=== PATIENT | male | born 1945 | race Caucasian/White ===

== ENCOUNTER 2018-08-17 20:12 | Emergency (ER) | payer SELFPAY ==
[~2018-08-17] VITALS: Ht 177.8 cm; Wt 78.9 kg
[2018-08-17 20:41] LABS: BASOPHILS ABSOLUTE AUTO 0.04 K/mm3 (0.00-0.23); BASOPHILS PERCENT AUTO 1 % (0-2); EOSINOPHILS ABSOLUTE AUTO 0.14 K/mm3 (0.00-0.68); EOSINOPHILS PERCENT AUTO 2 % (0-6); Hematocrit 36.6 % (37.0-53.0); Hemoglobin 12.6 g/dL (13.5-17.5); IMMATURE GRAN ABSOLUTE AUTO 0.02 K/mm3 (0.00-0.10); IMMATURE GRAN PERCENT AUTO 0 % (0-1); LYMPHOCYTES ABSOLUTE AUTO 1.99 K/mm3 (0.84-5.20); LYMPHOCYTES PERCENT AUTO 33 % (21-46); MONOCYTES ABSOLUTE AUTO 0.59 K/mm3 (0.16-1.47); MONOCYTES PERCENT AUTO 10 % (4-13); Mean Corpuscular HGB 34.2 pg (26.0-34.0); Mean Corpuscular HGB Conc 34.4 g/dL (31.5-36.5); Mean Corpuscular Volume 100 fL (80-100); Mean Platelet Volume 10.1 fL (9.1-12.4); NEUTROPHILS ABSOLUTE AUTO 3.19 K/mm3 (1.96-9.15); NEUTROPHILS PERCENT AUTO 54 % (41-73); Platelet Count 246 K/mm3 (150-400); RDW Coefficient Variation 12.3 % (11.7-14.2); RDW Standard Deviation 45.1 fL (35.1-46.3); Red Blood Cell Count 3.68 M/mm3 (4.30-5.90); White Blood Cell Count 5.97 K/mm3 (4.00-11.30)
[2018-08-17 20:55] LABS: Alanine Aminotransfer (ALT/SGP 32 U/L (12-78); Albumin, Blood 3.8 g/dL (3.4-5.0); Albumin/Globulin Ratio 1.1 (0.8-1.8); Alk Phos 120 U/L (50-136); Anion Gap 4 mmol/L (6-16); Aspartate Aminotrans (AST/SGOT 24 U/L (12-37); Bilirubin, Total 0.8 mg/dL (0.1-1.0); Blood Urea Nitrogen 13 mg/dL (8-24); Bun/Creatinine Ratio 14.2 (12.0-20.0); CO2, Blood 30 mmol/L (21-32); Calcium, Blood 8.5 mg/dL (8.5-10.1); Chloride, Blood 109 mmol/L (98-108); Creatinine, Blood 0.92 mg/dL (0.60-1.20); Globulin, Blood 3.4 g/dL (2.2-4.0); Glomerular Filtration Rate >60 (60-); Glucose, Blood 107 mg/dL (70-99); International Normalized Ratio 0.96; Potassium, Blood 3.7 mmol/L (3.5-5.5); Prothrombin Time Results 10.2 Sec (9.7-11.5); Sodium, Blood 143 mmol/L (136-145); Total Protein, Blood 7.2 g/dL (6.4-8.2)
[2018-08-17] MEDS ORDERED: ESCI20 PO (22:37)
[2018-08-17] MEDS ORDERED: ASPI325 PO (22:37)
[2018-08-17] MEDS ORDERED: FINA5 PO (22:38)
[2018-08-17] MEDS ORDERED: IBUP800 (22:38)
[2018-08-17] MEDS ORDERED: BUSP5 PO (22:38)
[2018-08-17] MEDS ORDERED: LISI5 PO (22:38)
== END 2018-08-17 23:01 | disposition home or self-care (01) ==
LOC: ER 20:12
PROVIDERS: Emergency Medicine
DX: G45.9 Transient cerebral ischemic attack, unspecified (principal); M54.5 Low back pain; Z88.1 Allergy status to other antibiotic agents; Z79.899 Other long term (current) drug therapy; Z79.82 Long term (current) use of aspirin
CPT/HCPCS: 70450; 72100; 80053; 85025; 85610; 93005; 93010; 99284-25

== ENCOUNTER 2018-08-27 19:11 | Inpatient (IN) | payer MEDICARE ==
[~2018-08-27] VITALS: Ht 177.8 cm; Wt 75.3 kg
[~2018-08-27 19:11] MED LIST: ASPI325 PO; BUSP5 PO; ESCI20 PO; FINA5 PO; IBUP800 PO; LISI5 PO
[2018-08-27] MEDS ORDERED: CLOP75 PO (19:26)
[2018-08-27 19:37] LABS: BASOPHILS ABSOLUTE AUTO 0.03 K/mm3 (0.00-0.23); BASOPHILS PERCENT AUTO 1 % (0-2); EOSINOPHILS ABSOLUTE AUTO 0.09 K/mm3 (0.00-0.68); EOSINOPHILS PERCENT AUTO 2 % (0-6); Hemoglobin 13.1 g/dL (13.5-17.5); IMMATURE GRAN ABSOLUTE AUTO 0.01 K/mm3 (0.00-0.10); IMMATURE GRAN PERCENT AUTO 0 % (0-1); LYMPHOCYTES ABSOLUTE AUTO 1.59 K/mm3 (0.84-5.20); LYMPHOCYTES PERCENT AUTO 26 % (21-46); MONOCYTES ABSOLUTE AUTO 0.59 K/mm3 (0.16-1.47); MONOCYTES PERCENT AUTO 10 % (4-13); Mean Corpuscular HGB 34.8 pg (26.0-34.0); Mean Corpuscular HGB Conc 35.4 g/dL (31.5-36.5); Mean Corpuscular Volume 98 fL (80-100); Mean Platelet Volume 10.2 fL (9.1-12.4); NEUTROPHILS ABSOLUTE AUTO 3.78 K/mm3 (1.96-9.15); NEUTROPHILS PERCENT AUTO 62 % (41-73); Platelet Count 246 K/mm3 (150-400); RDW Coefficient Variation 11.9 % (11.7-14.2); RDW Standard Deviation 43.6 fL (35.1-46.3); Red Blood Cell Count 3.76 M/mm3 (4.30-5.90); White Blood Cell Count 6.09 K/mm3 (4.00-11.30)
[2018-08-27 19:52] LABS: Alanine Aminotransfer (ALT/SGP 32 U/L (12-78); Albumin, Blood 3.8 g/dL (3.4-5.0); Albumin/Globulin Ratio 1.1 (0.8-1.8); Alk Phos 123 U/L (50-136); Anion Gap 6 mmol/L (6-16); Aspartate Aminotrans (AST/SGOT 31 U/L (12-37); Blood Urea Nitrogen 13 mg/dL (8-24); Bun/Creatinine Ratio 16.1 (12.0-20.0); CO2, Blood 28 mmol/L (21-32); Calcium, Blood 8.7 mg/dL (8.5-10.1); Chloride, Blood 108 mmol/L (98-108); Creatinine, Blood 0.81 mg/dL (0.60-1.20); Globulin, Blood 3.5 g/dL (2.2-4.0); Glomerular Filtration Rate >60 (60-); Glucose, Blood 129 mg/dL (70-99); Potassium, Blood 3.7 mmol/L (3.5-5.5); Sodium, Blood 142 mmol/L (136-145); Total Protein, Blood 7.3 g/dL (6.4-8.2)
[2018-08-27] MEDS ORDERED: MELATONIN5 M1 PO (20:34)
[2018-08-27] MEDS ORDERED: BUSP15 PO (20:35)
[2018-08-27 21:25] LABS: International Normalized Ratio 0.97; Prothrombin Time Results 10.3 Sec (9.7-11.5)
[2018-08-27] MEDS ORDERED: ATOR40TA PO (21:53)
[2018-08-27] MEDS ORDERED: [UNRECOGNIZED DRUG - OTHER] PO (21:53)
[2018-08-27] MEDS ORDERED: LO-DOSE ASPIRIN81 MG PO (21:53)
[2018-08-27] MEDS ORDERED: Flonase 0.05% N16 GM (21:54)
[2018-08-27] MEDS ORDERED: Loratadine10 MG PO (21:54)
[2018-08-27] MEDS ORDERED: LATA.005SO BOTHEYES (21:56)
[2018-08-27] MEDS ORDERED: ALBU90OI61 INH (21:56)
[2018-08-28 04:02] LABS: Source, Urine Clean Catch
[2018-08-28 04:03] LABS: Bilirubin, Urine Neg (Neg); Blood, Urine Neg (Neg); Glucose Qualitative, Urine Neg (Neg); Ketones, Urine Neg (Neg); Leukocyte Esterase, Urine Neg (Neg); Nitrite, Urine Neg (Neg); Protein, Urine Neg (Neg); Urobilinogen, Urine NORM (Normal)
[2018-08-28 04:04] LABS: Appearance, Urine Clear (Clear); Color, Urine Yellow (P-Yellow)
--- NOTE | 2018-08-28 04:49 | NUR ---
SHIFT SUMMARY PT ADMITTED FOR STROKE, LEFT SIDED WEAKNESS NOTED AND LEFT PUPIL SLUGGISH. PT ALSO STATES HE HAS NUMBNESS TO BOTH UPPER AND LOWER EXTREMITIES ON THE LEFT. PT ALERT AND ORIENTED. PT ADMITS TO BEING INCONTINENT OF URINE. PT ALSO WILL USE URINAL AT BEDSIDE PER SELF. SLEPT WELL DURING THE NIGHT, WILL CONTINUE TO MONITOR.
[2018-08-28 05:56] LABS: Hemoglobin 12.4 g/dL (13.5-17.5); Mean Corpuscular HGB 33.6 pg (26.0-34.0); Mean Corpuscular HGB Conc 34.4 g/dL (31.5-36.5); Mean Corpuscular Volume 98 fL (80-100); Mean Platelet Volume 9.9 fL (9.1-12.4); Platelet Count 206 K/mm3 (150-400); RDW Coefficient Variation 11.9 % (11.7-14.2); RDW Standard Deviation 41.8 fL (35.1-46.3); Red Blood Cell Count 3.69 M/mm3 (4.30-5.90); White Blood Cell Count 5.18 K/mm3 (4.00-11.30)
[2018-08-28 06:22] LABS: Alanine Aminotransfer (ALT/SGP 30 U/L (12-78); Albumin, Blood 3.5 g/dL (3.4-5.0); Albumin/Globulin Ratio 1.1 (0.8-1.8); Alk Phos 118 U/L (50-136); Anion Gap 6 mmol/L (6-16); Aspartate Aminotrans (AST/SGOT 25 U/L (12-37); Blood Urea Nitrogen 16 mg/dL (8-24); Bun/Creatinine Ratio 17.5 (12.0-20.0); CO2, Blood 26 mmol/L (21-32); Calcium, Blood 8.2 mg/dL (8.5-10.1); Chloride, Blood 112 mmol/L (98-108); Creatinine, Blood 0.91 mg/dL (0.60-1.20); Globulin, Blood 3.2 g/dL (2.2-4.0); Glomerular Filtration Rate >60 (60-); Glucose, Blood 101 mg/dL (70-99); Sodium, Blood 144 mmol/L (136-145); Total Protein, Blood 6.7 g/dL (6.4-8.2)
--- NOTE | 2018-08-28 10:27 | NUR ---
SPOKE WITH FRANK ENRIQUE THE PATIENTS SON AND POWER OF SAILBOAT CAPTAIN. UPDATED ON PATIENTS CONDITION. FRANK STATED THAT HE HAS CONCERNS FOR HIS FATHER GOING HOME SINCE HE LIVES ALONE. HE REPORTS MULTIPLE FALLS RECENTLY AND THAT PAT[facility]. FRANK WOULD LIKE TO BE NOTIFIED OF CHANGES IN PATIENT CONDITION.
--- NOTE | 2018-08-28 11:23 | NUR ---
ECHOCARDIOGRAM COMPLETED
--- NOTE | 2018-08-28 16:09 | NUR ---
PATIENT A/OX4, CONTINUES TO HAVE L SIDED WEAKNESS AND NUMBNESS WITH MILD L SIDED FACIAL DROOP. PT/OT ORDERS PLACED TODAY TO EVAL AND TREAT IN AM. PATIENT REPORTS MILD PAIN TO L ARM WHERE THERE ARE BRUSIES FROM HIS FALLS. FALL PRECAUTIONS IN PLACE PER UNIT PROTOCOL. CALM AND COOPERATIVE WITH CARE, CALLS APPROPRIATELY FOR ASSISTANCE. NO ACUTE CHANGES THIS SHIFT, VSS.
--- NOTE | 2018-08-29 05:14 | NUR ---
SHIFT SUMMARY PT SLEPT WELL DURING THE NIGHT. USES URINAL AT BEDSIDE PER SELF. NO ACUTE CHANGES NOTED DURING THE NIGHT, WILL CONTINUE TO MONITOR.
--- NOTE | 2018-08-29 17:54 | NUR ---
PT IS AOX3 WITH CONFUSION. WILL SEEM LIKE HE IS TOTALLY ALERT,BUT WITH MORE QUESTIONS WILL GET CONFUSED OR BE UNABLE TO ANSWER WITH MUCH DETAIL. COOPERATIVE OF CARE AND IS A ONE PERSON WITH GATE BELT. WILL CONTINUE TO MONITOR.
--- NOTE | 2018-08-30 04:08 | NUR ---
SHIFT SUMMARY A/O, ABLE TO MAKE NEEDS KNOWN. SOME CONFUSION AT TIMES. COOPERATIVE WITH CARE. ANSWERS QUESTIONS APPROPRIATELY. DOES NOT USE CALL LIGHT. BED ALARM SET. USES URINAL AT BEDSIDE. VSS/AFEBRILE. DID NOT APPEAR TO SLEEP WELL; AWAKE MOST OF SHIFT. NO ACUTE CHANGES OVER NIGHT. BED IN LOWEST POSITION. CALL LIGHT AND BELONGINGS WITHIN REACH. WCTM. REPORT TO ONCOMING RN.
--- NOTE | 2018-08-30 17:57 | NUR ---
PT AOX4 WITH SOME CONFUSION OFF AND ON. PT HAS BEEN UP AND WORKING WITH WALKER WITH PHYSICAL THERAPY. PT ALSO WAS UP AND ASSISTED IN TAKIING A SHOWER. PT AT TIMES CAN BE IMPULSIVE AND BED ALARM ON WITH BED AT LOWEST POSITION. PT DENIES PAIN AND NO DISTRESS NOTED AT THIS TIME.
--- NOTE | 2018-08-31 04:49 | NUR ---
SHIFT SUMMARY PT SOMETIMES FORGETFUL AND IMPULSIVE. SAID HE WAS HEARING VOICES OUTSIDE THE WINDOW AND SAW SOMEONE WALKING THROUGH HALLWAY. USING URINAL AT BEDSIDE BUT ALSO LIKES TO WALKE C WALKER TO BA BUT WILL ALSO SOMETIMES BE INCONT OF URINE. HE WAS ABLE TO DOZE ON AND OFF T/O NOC. BED ALARM IN USE. CALL LIGHT IN REACH. STATED HE HAD A "STUPENDOUS" BM IN BATHROOM.
--- NOTE | 2018-08-31 17:38 | NUR ---
SHIFT SUMMARY PT HAS BEEN ORIENTED MOST THE DAY WITH A FEW MOMENTS OF CONFUSION/HALLUCINATIONS. NO CHANGES IN ASSESSMENT AT THIS TIME. PT CONT/INC OF URINE. PT COOPERATIVE THIS SHIFT. VSS. PT AWAITING SAFE DISCHARGE. WILL CONTINUE TO MONITOR UNTIL TURNOVER IS COMPLETE.
--- NOTE | 2018-09-01 04:39 | NUR ---
ENVIRONMENTAL HEALTH MANAGER SUMMARY NO ACUTE CHANGES THIS SHIFT. PT AAOX3 AND COOPERATIVE WITH CARE. STANDBY ASSIST UP TO BEDSIDE TO USE URINAL. GAVE PT FIRST DOSE OF ULTRAM TONIGHT FOR CHRONIC HEADACHE, PT REPORTS PAIN RELIEF AND HAS BEEN ABLE TO SLEEP MOST OF NIGHT. STRENGTH ON LEFT SIDE SEEMS CLOSE TO EQUAL TO RIGHT SIDE. PT ONLY REPORTS SOME NUMBNESS OF FINGERS AND TOES ON L SIDE. VSS, WILL CONTINUE TO MONITOR.
[2018-09-01] MEDS ORDERED: ACET500 PO (10:18)
[2018-09-01] MEDS ORDERED: METO25ER PO (10:18)
--- NOTE | 2018-09-01 14:42 | NUR ---
DISCHARGE SUMMARY PT A&Ox3. PT RESTING IN BED DURING SHIFT. UP WITH URINAL WITH SBA. PT REPORTS BRAGG, MEDICATED X1 WITH ULTRAM AND X1 WITH CAPSASIN CREAM. PT ON RA, DENIES SOB, LS DIM. PT DENIES N/V DURING SHIFT. PT LEAD SOLUTIONS ARCHITECT ARE EQUAL AND NO FACIAL DROOP NOTED. VSS. NO OTHER ACUTE CHANGES NOTED DURING SHIFT. PT EDUCATED ON DISCHARGE ORDERS, MEDICATION CHANGES AND FOLLOW UP APPOINTMENT SCHEDULED PER DISCHARGE PLANNING. [facility]. PT LEFT ROOM VIA WHEELCHAIR AT 1333 WITH SISTER. PT STABLE UPON DISCHARGE.
== END 2018-09-01 13:35 | disposition home health service (06) | DRG 69 ==
LOC: ER 19:11 → MEDS 21:46 → ENPENDDIS 09-01 10:53 → MEDS 09-01 13:35
PROVIDERS: Emergency Medicine; ADMIT Internal Medicine
DX: G45.9 Transient cerebral ischemic attack, unspecified (principal); R53.1 Weakness; I10 Essential (primary) hypertension; H40.9 Unspecified glaucoma; R20.2 Paresthesia of skin; S20.212A Contusion of left front wall of thorax, initial encounter; Z79.82 Long term (current) use of aspirin; Z79.02 Long term (current) use of antithrombotics/antiplatelets; C61 Malignant neoplasm of prostate; Z92.21 Personal history of antineoplastic chemotherapy; J44.9 Chronic obstructive pulmonary disease, unspecified; I34.0 Nonrheumatic mitral (valve) insufficiency; F01.50 Vascular dementia, unspecified severity, without behavioral disturbance, psychotic disturbance, mood disturbance, and anxiety; M54.2 Cervicalgia; Z87.891 Personal history of nicotine dependence; Z98.2 Presence of cerebrospinal fluid drainage device
CPT/HCPCS: 36415; 70450; 70496; 70498; 80053; 81003; 85025; 85027; 85610; 93005; 93010; 93306; 94640; 94760; 97116; 97162; 97166; 97530; 97535; 99285-25; G0515; J1650; J7030; Q9967